=== PATIENT | female | born 1940 | race Caucasian/White ===

== ENCOUNTER 2017-06-29 07:09 | Emergency (ER) | payer MEDICARE ==
[~2017-06-29] VITALS: Ht 165.1 cm; Wt 60.0 kg
[2017-06-29] MEDS ORDERED: XANAX0.5 MG PO (07:24)
[2017-06-29] MEDS ORDERED: ASPIRIN81 MG PO (07:24)
[2017-06-29] MEDS ORDERED: FUROSEMIDE20 MG PO (07:24)
[2017-06-29] MEDS ORDERED: QUINAPRIL20 MG PO (07:24)
[2017-06-29] MEDS ORDERED: FLONASE AL50 MCG/ACT (07:25)
[2017-06-29 08:30] VITALS: BP 161/84
== END 2017-06-29 08:30 | disposition home or self-care (01) ==
LOC: ED 07:09
DX: J32.0 Chronic maxillary sinusitis (principal); I11.0 Hypertensive heart disease with heart failure; I50.9 Heart failure, unspecified; F41.9 Anxiety disorder, unspecified

== ENCOUNTER 2018-10-09 17:26 | Emergency (ER) | payer MEDICARE, OTHER ==
[~2018-10-09] VITALS: Ht 154.9 cm; Wt 67.3 kg
[~2018-10-09 17:26] MED LIST: ASPIRIN81 MG PO; FLONASE AL50 MCG/ACT; FUROSEMIDE20 MG PO; QUINAPRIL20 MG PO; XANAX0.5 MG PO
[2018-10-09 20:40] VITALS: BP 165/80
== END 2018-10-09 20:40 | disposition home or self-care (01) ==
LOC: ED 17:26
DX: S01.81XA Laceration without foreign body of other part of head, initial encounter (principal); E04.1 Nontoxic single thyroid nodule; W01.198A Fall on same level from slipping, tripping and stumbling with subsequent striking against other object, initial encounter; Y93.H2 Activity, gardening and landscaping; Y92.007 Garden or yard of unspecified non-institutional (private) residence as the place of occurrence of the external cause

== ENCOUNTER 2024-01-13 09:59 | Observation (INO) | payer MEDICARE, OTHER ==
[2024-01-13] VITALS (13 sets, daily range): BP systolic 106–145; BP diastolic 54–75
[~2024-01-13] VITALS: Ht 154.9 cm; Wt 66.7 kg
[~2024-01-13 09:59] MED LIST changes: +VIBRAMYCIN100 M2 PO
[2024-01-13] MEDS ORDERED: HYDROcodone 5 MG/Acetaminophen 325 MG/COMBO PO ONE (11:10)
[2024-01-13 14:05] LABS: BASO% 0.2 % (0-3); HEMATOCRIT 39.6 % (37.0-47.0); HEMOGLOBIN 13.1 g/dl (12.0-16.0); IMMATURE GRANULOCYTES 0.2 % (0.0-5.0); LYMPH% 12.6 % (15-41); MEAN CELL VOLUME 93.2 fL CALC (80.0-100.0); MEAN CORPUSCULAR HGB 30.8 pG CALC (26.0-32.0); MEAN CORPUSCULAR HGB CONC 33.1 g/dL CAL (32.0-36.0); MONO% 15.7 % (2-13); NEUT# 8.64 thou/uL (2.00-7.15); NEUT% 71.3 % (42-76); RED BLOOD COUNT 4.25 mill/uL (4.20-5.60); RED CELL DISTRI WIDTH 14.6 % (11.5-15.5)
[2024-01-13 14:35] LABS: ALBUMIN 3.5 g/dL (3.2-5.0); BILIRUBIN, TOTAL 1.4 mg/dL (0.02-1.3); CREATININE 0.6 mg/dL (0.5-1.0); TOTAL PROTEIN 6.1 g/dL (6.3-8.2)
[2024-01-13] MEDS ORDERED: ALPRAZolam 1 MG/TAB PO PRN (14:45)
[2024-01-13] MEDS ORDERED: MORPHINE SULFATE 4 MG/ML VIAL IV PRN (14:45)
[2024-01-13] MEDS ORDERED: HYDROcodone 7.5 MG/Acetaminophen 325 MG/COMBO PO PRN (14:45)
[2024-01-13] MEDS ORDERED: ACETAMINOPHEN 325 MG/TAB PO PRN (14:50)
[2024-01-13] MEDS ORDERED: hydrALAZINE HCL 20 MG/ML VIAL(1 ML) IV PRN (14:50)
[2024-01-13] MEDS ORDERED: MAGNESIUM HYDROXIDE 30 ML UDC PO PRN (14:50)
[2024-01-13 15:35] LABS: POTASSIUM 2.5 mmol/l (3.5-5.1)
[2024-01-13] MEDS ORDERED: POTASSIUM CHLORIDE 20 MEQ/TAB PO ONE (19:25)
[2024-01-13] MEDS ORDERED: ENOXAPARIN SODIUM 40 MG/0.4 ML SYR SC SCH (21:00)
[2024-01-14 00:14] VITALS: BP 124/62
[2024-01-14 04:48] VITALS: BP 140/61
[2024-01-14 05:38] VITALS: BP 140/61
[2024-01-14 05:47] LABS: BASO% 0.4 % (0-3); EOS% 0.3 % (0-8); HEMATOCRIT 43.5 % (37.0-47.0); HEMOGLOBIN 14.2 g/dl (12.0-16.0); IMMATURE GRANULOCYTES 0.3 % (0.0-5.0); LYMPH% 19.4 % (15-41); MEAN CORPUSCULAR HGB CONC 32.6 g/dL CAL (32.0-36.0); MONO% 17.1 % (2-13); NEUT# 6.96 thou/uL (2.00-7.15); NEUT% 62.5 % (42-76); RED BLOOD COUNT 4.58 mill/uL (4.20-5.60)
[2024-01-14 06:04] LABS: ALBUMIN 3.5 g/dL (3.2-5.0); BILIRUBIN, TOTAL 1.4 mg/dL (0.02-1.3); CHOLESTEROL HDL RATIO 1.9 (<4.4 (CALC)); CREATININE 0.7 mg/dL (0.5-1.0); MAGNESIUM 2.2 mg/dL (1.6-2.3); TOTAL PROTEIN 6.5 g/dL (6.3-8.2)
[2024-01-14 06:13] LABS: POTASSIUM 3.3 mmol/l (3.5-5.1)
[2024-01-14 07:30] VITALS: BP 108/55
[2024-01-14] MEDS ORDERED: LOSARTAN Potassium 50 MG/TAB PO SCH (09:00)
[2024-01-14] MEDS ORDERED: FUROSEMIDE 20 MG/TAB PO SCH (09:00)
[2024-01-14] MEDS ORDERED: VENLAFAXINE HYDROCHLORIDE 37.5 MG/TAB PO SCH (09:00)
[2024-01-14 10:47] VITALS: BP 147/68
[2024-01-14] MEDS ORDERED: LOSARTAN POTASS50 MG PO (12:35)
[2024-01-14] MEDS ORDERED: VENLAFAXINE37.5 MG PO (12:35)
== END 2024-01-14 16:55 ==
LOC: ED 09:59 → ED-I 11:07 → ED 14:29 → MS2 14:30
PROVIDERS: Family Medicine; ADMIT Student in an Organized Health Care Education/Training Program; ATTEND Student in an Organized Health Care Education/Training Program
PROC: 0S9C3ZZ Drainage of Right Knee Joint, Percutaneous Approach (ICD-10-PCS; principal; 2024-01-14)
DX: M25.561 Pain in right knee (principal); M25.461 Effusion, right knee; I10 Essential (primary) hypertension; E66.9 Obesity, unspecified; F41.8 Other specified anxiety disorders; W01.0XXA Fall on same level from slipping, tripping and stumbling without subsequent striking against object, initial encounter; Y92.009 Unspecified place in unspecified non-institutional (private) residence as the place of occurrence of the external cause; Z60.2 Problems related to living alone
CPT/HCPCS: J1650

== ENCOUNTER 2024-10-05 11:30 | Emergency (ER) | payer MEDICARE, OTHER ==
[2024-10-05] VITALS (8 sets, daily range): BP systolic 114–137; BP diastolic 54–73
[~2024-10-05] VITALS: Ht 154.9 cm; Wt 63.0 kg
[~2024-10-05 11:30] MED LIST changes: +LOSARTAN POTASS50 MG PO; +VENLAFAXINE37.5 MG PO
[2024-10-05] MEDS ORDERED: Diph, Acellular Pertussis, Tet 0.5 ML/VIAL (Tdap) SDV IM ONE (11:40)
[2024-10-05] MEDS ORDERED: HYDROCHLOROT25 MG PO (14:16)
[2024-10-05] MEDS ORDERED: VENLAFAXINE37.5 M2 PO (14:16)
[2024-10-05] MEDS ORDERED: CEPHALEXIN500 M1 PO (14:59)
== END 2024-10-05 15:18 | disposition home or self-care (01) ==
LOC: ED 11:30
DX: S00.81XA Abrasion of other part of head, initial encounter (principal); S00.31XA Abrasion of nose, initial encounter; M25.562 Pain in left knee; M25.561 Pain in right knee; I10 Essential (primary) hypertension; W18.39XA Other fall on same level, initial encounter; Y93.H2 Activity, gardening and landscaping; Y92.007 Garden or yard of unspecified non-institutional (private) residence as the place of occurrence of the external cause
CPT/HCPCS: 90715